=== PATIENT | female | born 1950 | race Caucasian/White ===

== ENCOUNTER 2018-10-12 09:50 | Emergency (ER) | payer OTHER ==
[~2018-10-12] VITALS: Ht 162.6 cm; Wt 90.7 kg
[2018-10-12] MEDS ORDERED: EFFEXOR XR37.5 MG PO (10:56)
[2018-10-12] MEDS ORDERED: PRAVACHOL40 MG PO (10:56)
[2018-10-12] MEDS ORDERED: ASPIR 8181 MG PO (10:57)
[2018-10-12] MEDS ORDERED: METFORMIN HCL500 MG PO (10:57)
[2018-10-12] MEDS ORDERED: LASIX 20 MG TAB20 MG PO (10:58)
[2018-10-12] MEDS ORDERED: TRAMADOL 50 MG50 MG PO (10:58)
[2018-10-12] MEDS ORDERED: COZAAR 25 MG TA25 M1 PO (10:59)
[2018-10-12] MEDS ORDERED: VITAMIN D2000 UNIT PO (10:59)
[2018-10-12] MEDS ORDERED: LOPRESSOR25 PO (11:00)
[2018-10-12 11:03] LABS: CALCIUM 9.9 mg/dL (8.5-10.1); POTASSIUM 4.5 mmol/L (3.5-5.1)
[2018-10-12 11:09] LABS: ALBUMIN 3.7 g/dL (3.4-5.0); DIRECT BILIRUBIN 0.3 mg/dL (<0.1-0.3); TOTAL PROTEIN 9.4 g/dL (6.4-8.2)
[2018-10-12 12:51] LABS: ABSOLUTE NEUTROPHILS 9.2 thou/uL (1.4-8.2); BASOPHILS 0.2 % (0.0-2.0); EOSINOPHILS 0.1 % (0.0-3.0); HEMATOCRIT 41.2 % (37.0-47.0); HEMOGLOBIN 14.2 gm/dL (12.0-15.0); LYMPHOCYTES 7.1 % (24.0-44.0); MCH 30.1 pg (26.0-34.0); MCHC 34.4 g/dL (28.0-37.0); MCV 87.5 fL (80.0-100.0); MONOCYTES 3.7 % (1.0-8.0); PLATELET COUNT 147 thou/uL (150-400); POLYS 88.9 % (36.0-66.0); RBC 4.71 mil/uL (4.20-5.00); WBC 10.3 thou/uL (4.0-11.0)
[2018-10-12 15:08] LABS: URINE BILIRUBIN NEGATIVE (Negative); URINE CLARITY CLEAR; URINE COLOR YELLOW; URINE GLUCOSE-RANDOM* NEGATIVE (Negative); URINE KETONES NEGATIVE (Negative); URINE PROTEIN (DIPSTICK) TRACE (Negative); URINE SPECIFIC GRAVITY 1.015 (1.005-1.035)
[2018-10-12 15:09] LABS: URINE BLOOD NEGATIVE (Negative); URINE LEUKOCYTES-REFLEX NEGATIVE (Negative); URINE NITRITE-REFLEX NEGATIVE (Negative); URINE UROBILINOGEN 0.2 E.U./dl (0.2-1.0)
[2018-10-12 16:50] VITALS: BP 113/69
== END 2018-10-12 16:57 | disposition home or self-care (01) ==
LOC: ER 09:50
PROVIDERS: Emergency Medicine
DX: R19.7 Diarrhea, unspecified (principal); R11.10 Vomiting, unspecified; E86.0 Dehydration; E87.2 Acidosis; Z95.1 Presence of aortocoronary bypass graft; Z95.5 Presence of coronary angioplasty implant and graft; Z91.041 Radiographic dye allergy status